=== PATIENT | female | born 1995 | race Caucasian/White ===

== ENCOUNTER 2017-05-29 13:55 | Emergency (ER) | payer OTHER, SELFPAY ==
--- NOTE | 2017-05-29 14:56 | RAD ---
SACRUM AND COCCYX: History: Right buttock pain. FINDINGS/IMPRESSION: AP, lateral, and pelvic inlet views obtained. There is an intrauterine device in place. The sacrum and coccyx were unremarkable. No evidence of fracture seen. There does appear to be transi tional type lumbosacral vertebrae with pseudoarthrosis of the sacral ala and transitional transverse processes. POS: [facility]
[2017-05-29] MEDS ORDERED: Ketorolac Tromethamine 30 MG/ML VIAL ONE (15:24)
== END 2017-05-29 15:42 | disposition home or self-care (01) ==
LOC: ERS 13:55
DX: S30.0XXA Contusion of lower back and pelvis, initial encounter (principal); M54.10 Radiculopathy, site unspecified; J45.909 Unspecified asthma, uncomplicated; F90.9 Attention-deficit hyperactivity disorder, unspecified type; F17.210 Nicotine dependence, cigarettes, uncomplicated; W17.89XA Other fall from one level to another, initial encounter
CPT/HCPCS: 72220; 96372; J1885